=== PATIENT | male | born 1950 | race Caucasian/White ===

== ENCOUNTER 2017-08-26 09:53 | Emergency (ER) | payer OTHER ==
[2017-08-26 10:12] VITALS: BP 127/87
[2017-08-26] MEDS ORDERED: Albuterol 2.5 MG/3 ML NEB.SOL* (0.083%) INH ONE (10:19)
--- NOTE | 2017-08-26 10:20 | UC ---
General HPI - HPI Summary HPI Summary: Patient presents with his . He is complaining of two-week history of increasing cough with congestion and yellow sputum. he admits to some short of breath and wheezing. He denies any history of asthma or emphysema. He does not smoke. He has had no fever or chills. He does note some pain in his left side which is a pulled muscle from the coughing. He denies any sick contacts. He denies any chest pain. - History of Current Complaint Hx Obtained From: Patient Onset/Duration: Gradual Onset Timing: Constant Pain Intensity: 0 Associated Signs & Symptoms: Positive: Cough, SOB, Wheezing. Negative: Chest Pain, Fever <Tara Gabriel - Last Filed: 08/26/17 10:58> <Harsh Milligan - Last Filed: 08/26/17 11:15> - History of Current Complaint Chief Complaint: UCRespiratory Stated Complaint: CONGESTION Time Seen by Provider: 08/26/17 10:14 - Allergy/Home Medications Allergies/Adverse Reactions: Allergies Allergy/AdvReac Type Severity Reaction Status Date / Time No Known Allergies Allergy Verified 08/26/17 10:08 Home Medications: Home Medications Dm/Pseudoephed/Acetaminophen [Day-Time Cold-Flu Softgel] 1 each PO Q8HR PRN [History Confirmed 08/26/17] PMH/Surg Hx/FS Hx/Imm Hx Previously Healthy: Yes - Surgical History Surgical History: Yes Surgery Procedure, Year, and Place: skin cancer removal. groin lymph nodes removed - Family History Known Family History: Positive: None - Social History Occupation: Retired Lives: With Family Alcohol Use: Occasionally Substance Use Type: None Smoking Status (MU): Never Smoked Tobacco Type: Smokeless Tobacco Have You Smoked in the Last Year: No When Did the Patient Quit Smoking/Using Tobacco: 5 years ago - Immunization History Vaccination Up to Date: Yes <Tara Gabriel - Last Filed: 08/26/17 10:58> Review of Systems Constitutional: Negative Skin: Negative Eyes: Negative ENT: Negative Respiratory: Shortness Of Breath, Cough Cardiovascular: Negative Gastrointestinal: Negative Genitourinary: Negative Motor: Negative Neurovascular: Negative Musculoskeletal: Other: - L side of back Neurological: Negative Psychological: Negative Is Patient Immunocompromised?: No All Other Systems Reviewed And Are Negative: Yes <Tara Gabriel - Last Filed: 08/26/17 10:58> Physical Exam Triage Information Reviewed: Yes Appearance: Well-Appearing Vital Signs: Initial Vital Signs Temp 98.4 F 08/26/17 10:03 Pulse 94 08/26/17 10:03 Resp 18 08/26/17 10:03 BP 127/87 08/26/17 10:03 Pulse Ox 98 08/26/17 10:03 Eyes: Positive: Conjunctiva Clear ENT: Positive: Pharynx normal, TMs normal. Negative: Nasal congestion, Nasal drainage Neck: Positive: Supple, Nontender, No Lymphadenopathy Respiratory: Positive: No respiratory distress, Decreased breath sounds, Rhonchi , Wheezing, Other: - L posterior - lateral chest wall tenderness but crepitation or instability Cardiovascular: Positive: RRR, No Murmur Abdomen Description: Positive: Nontender, No Organomegaly, Soft. Negative: Distended, Guarding Bowel Sounds: Positive: Present Musculoskeletal: Positive: ROM Intact, No Edema Neurological: Positive: Alert Psychological: Positive: Age Appropriate Behavior Skin Exam: Normal <Tara Gabriel - Last Filed: 08/26/17 10:58> Vital Signs: Initial Vital Signs Temp 98.4 F 08/26/17 10:03 Pulse 94 08/26/17 10:03 Resp 18 08/26/17 10:03 BP 127/87 08/26/17 10:03 Pulse Ox 98 08/26/17 10:03 <Harsh Milligan - Last Filed: 08/26/17 11:15> Diagnostics - Radiology No standard instances Radiology Interpretation Completed By: Radiologist - CXR=nad(see report) <Tara Gabriel - Last Filed: 08/26/17 10:58> Re-Evaluation - Re-Evaluation Second Eval Re-Evaluation Time: 10:51 Change: Improved - no rhonchi or wheezes pkus aeration improved and pt notes easier to breathe. <Tara Gabriel - Last Filed: 08/26/17 10:58> Course/Dx - Course Course Of Treatment: no cm, infiltrate or pxt. ill x 2 weeks with worsening thus will cover with an antibiotic. - Differential Dx - Multi-Symptom Provider Diagnoses: Cough. bronchospasm. <Tara Gabriel - Last Filed: 08/26/17 10:58> Discharge - Sign-Out/Discharge Documenting (check all that apply): Discharge/Admit/Transfer - Billing Disposition and Condition Condition: IMPROVED Disposition: Home <Tara Gabriel - Last Filed: 08/26/17 10:58> - Billing Disposition and Condition Condition: IMPROVED Disposition: Home <ChelHarsh - Last Filed: 08/26/17 11:15> - Discharge Plan Condition: Improved Disposition: HOME Prescriptions: Albuterol HFA INHALER* [Ventolin HFA Inhaler*] 2 puff INH Q6H #1 mdi DOXYcycline CAP(*) [DOXYcycline 100MG CAP(*)] 100 mg PO BID #20 cap Patient Education Materials: Bronchospasm (ED), Acute Cough (ED) Referrals: Non Staff,Doctor [Primary Care Provider] - Additional Instructions: FOLLOW UP WITH YOUR DOCTOR IN [place] IN 1 WEEK FOR A RECHECK. GO TO NEAREST ER FOR CHANGES/WORSENING. Per institutional requirements, I have reviewed the chart, however, I was not consulted specifically or made aware of this patient by the above midlevel provider. I did not personally evaluate, interact with , or disposition this patient.
--- NOTE | 2017-08-26 10:38 | RAD ---
Indication: Cough, congestion. 2 views of the chest demonstrate no mediastinal shift. Heart is of normal size and configuration. Lung rowan appear hyperinflated with no evidence of alveolar consolidation. IMPRESSION: No active cardiopulmonary disease is noted.
== END 2017-08-26 11:05 | disposition home or self-care (01) ==
LOC: UCCORT 09:53
DX: R05 Cough (principal); J98.01 Acute bronchospasm; Z85.828 Personal history of other malignant neoplasm of skin
CPT/HCPCS: 71046; 99202; G0463